=== PATIENT | male | born 1980 | race Caucasian/White ===

== ENCOUNTER 2017-06-22 15:27 | Emergency (ER) | payer SELFPAY ==
[~2017-06-22] VITALS: Ht 170.2 cm; Wt 80.8 kg
[2017-06-22] MEDS ORDERED: INDOCIN50 MG PO (17:49)
[2017-06-22 18:26] VITALS: BP 130/75
== END 2017-06-22 19:15 | disposition home or self-care (01) ==
LOC: EME 15:27
DX: S70.11XA Contusion of right thigh, initial encounter (principal); S30.1XXA Contusion of abdominal wall, initial encounter; S70.311A Abrasion, right thigh, initial encounter; S30.811A Abrasion of abdominal wall, initial encounter; W20.8XXA Other cause of strike by thrown, projected or falling object, initial encounter; Y93.H9 Activity, other involving exterior property and land maintenance, building and construction
CPT/HCPCS: 74000